=== PATIENT | male | born 1955 | race Caucasian/White ===

== ENCOUNTER 2024-06-06 18:32 | Inpatient (IN) | payer OTHER, SELFPAY ==
[2024-06-06 15:09] VITALS: BP 148/82
[2024-06-06 15:21] LABS: Glucose - Point of Care 265 mg/dl (70-99)
[2024-06-06 15:28] LABS: % Basophils 0.4 % (0-2); % Eosinophils 0.4 % (0-6); % Immature Granulocytes 0.4 % (0-0.5); % Lymphocytes 7.1 % (20.5-51.1); % Monocytes 8.9 % (1.7-9.3); % Neutrophils 82.8 % (42.2-75.2); Absolute Basophils 0.1 10^3/uL (0-0.2); Absolute Eosinophils 0.1 10^3/uL (0-0.7); Absolute Immature Granulocytes 0.1 10^3/uL (0-0.05); Absolute Lymphocytes 1.1 10^3/uL (1.2-3.4); Absolute Monocytes 1.4 10^3/uL (0.1-0.6); Absolute Neutrophils 12.9 10^3/uL (1.4-6.5); Hematocrit 31.6 % (39.0-52.0); Hemoglobin 11.3 g/dL (13.0-18.0); Mean Corp Hgb Conc. 35.8 g/dL (33.0-37.0); Mean Corpuscular Hgb 31.9 pg (27.0-31.0); Mean Corpuscular Volume 89.3 fL (80.0-94.0); Mean Platelet Volume 9.6 fL (7.4-10.4); Nucleated Red Blood Cells % 0 % (-); Platelet Count 171 10^3/uL (130-400); Red Blood Cell Count 3.54 10^6/uL (4.70-6.10); Red Cell Dist. Width 12.2 % (11.5-14.5); White Blood Cell Count 15.6 10^3/uL (4.8-10.8)
[2024-06-06 15:40] LABS: Lactic Acid 1.1 mmol/L (0.7-2.0)
[2024-06-06 15:49] LABS: ALT (SGPT) 20 U/L (0-50); AST (SGOT) 30 U/L (17-59); Albumin 4.8 g/dl (3.5-5.0); Alkaline Phosphatase 78 U/L (38-126); Blood Urea Nitrogen 47 mg/dl (9-20); Calcium 9.7 mg/dl (8.4-10.2); Carbon Dioxide 21 mmol/L (22-30); Chloride 103 mmol/L (98-107); Glucose 254 mg/dl (70-99); Potassium 5.3 mmol/L (3.5-5.1); Sodium 137 mmol/L (135-145); Total Bilirubin 0.6 mg/dl (0.2-1.3); Total Protein 7.2 g/dl (6.3-8.2); eGFR 31.63
--- NOTE | 2024-06-06 16:02 | ED.GENMED ---
History of Present Illness
General
Chief Complaint: Abdominal Symptoms
Source: patient
Time Seen by Provider: 06/06/24 15:34
History of Present Illness
History of Present Illness:
68yoM with a history of hypertension, hyperlipidemia, and type 2 diabetes presenting for evaluation of abdominal pain. Patient initially started with nausea and vomiting 2 days ago. Symptoms began after he ate leftover spaghetti. He has not had
any vomiting since yesterday morning but continues to feel nauseous. He reports generalized abdominal discomfort as well as back pain. He also feels very fatigued. He was seen at [facility] prior to arrival and was found to have a leukocytosis
with a white count of 13 as well as a creatinine of 2.3 and a potassium of 5.1. He was advised to go to the ED for evaluation. Patient denies any history of kidney disease in the past. He states he is urinating normally. He denies any diarrhea.
Phy Exam
Physical Exam
Physical Exam:
Appears fatigued, non-toxic
General Physical Exam
General Presentation: no apparent distress
General age: appears stated age
General Skin: warm and dry
General Habitus: normal
General Mental: alert
Cardiovascular Exam
Cardiovascular Exam: regular rate/rhythm, no edema and no murmur
Pulmonary Exam
Pulmonary Exam: lungs clear, no respiratory distress, no crackles and no wheezing
Gastrointestinal Exam
Gastrointestinal Exam: soft, non distended and tender (Mild generalized tenderness. No rebound or guarding. )
Palpation: generalized: Mild tenderness
Elpidio Coma Scale
Eye Opening: Spontaneous
Verbal Response: Oriented
Motor Response: Obeys Commands
GCS Total Score: 15
Skin Exam
Skin Exam: normal color and warm/dry
Psychiatric Exam
Psychiatric Exam: normal mood/affect
Course
Orders/Labs/Results
Orders:
Orders
06/06/24 15:15
Electrocardiogram (*1) Urgent
Reason for Study: Abdominal Pain
EKG- Treatment ONCE
06/06/24 15:21
Complete Blood Count/With Diff Urgent
Comprehensive Metabolic Panel Urgent
Lactic Acid Urgent
Lipase Urgent
06/06/24 15:58
CT Abd/pel Without Iv Or Oral Urgent
Comment:
Reason For Exam: Generalized abd pain, MELISSA
Cardiac Monitoring- Treatment ONCE
0.9% Sodium Chloride 1000 ml [Nss] 1,000 ml IV BOLUS
06/06/24 16:06
COVID-19 Antigen Urgent
Source: Nasal Swab
06/06/24 17:24
0.9% Sodium Chloride 1000 ml [Nss] 1,000 ml IV BOLUS
06/06/24 17:27
Lactated Ringers [Lr] 1,000 ml IV BOLUS
06/06/24 17:48
Urinalysis Reflex To Culture Urgent
Date Specimen was Collected: 06/06/24
Time Specimen was Collected: 15:15
Urine Microscopic Reflex Cult Urgent
Abnormal Lab Results
06/06/24 06/06/24 06/06/24
15:19 15:21 17:48
WBC 15.6 H 10^3/uL
(4.8-10.8)
RBC 3.54 L 10^6/uL
(4.70-6.10)
Hgb 11.3 L g/dL
(13.0-18.0)
Hct 31.6 L %
(39.0-52.0)
MCH 31.9 H pg
(27.0-31.0)
Abs Immat Gran (auto) 0.1 H 10^3/uL
(0-0.05)
Absolute Neuts (auto) 12.9 H 10^3/uL
(1.4-6.5)
Absolute Lymphs (auto) 1.1 L 10^3/uL
(1.2-3.4)
Absolute Monos (auto) 1.4 H 10^3/uL
(0.1-0.6)
Neutrophils % 82.8 H %
(42.2-75.2)
Lymphocytes % 7.1 L %
(20.5-51.1)
Potassium 5.3 H mmol/L
(3.5-5.1)
Carbon Dioxide 21 L mmol/L
(22-30)
BUN 47 H mg/dl
(9-20)
Creatinine 2.2 H mg/dL
(0.7-1.3)
Glucose 254 H mg/dl
(70-99)
Lipase > 4000 H* U/L
(23-300)
Urine Albumin (Reflex) 1+ A
(Neg - Trace)
POC Glucose 265 H mg/dl
(70-99)
06/06/24 15:21
06/06/24 15:21
Vital Signs
Initial and Last Documented VS:
Initial Vital Signs
Temp Pulse Resp BP Pulse Ox
100.2 F 86 16 148/82 98
06/06/24 15:09 06/06/24 15:09 06/06/24 15:09 06/06/24 15:09 06/06/24 15:09
Last Documented Vital Signs
Temp Pulse Resp BP Pulse Ox
99.1 F 88 17 148/82 98
06/06/24 17:05 06/06/24 17:49 06/06/24 17:49 06/06/24 15:09 06/06/24 17:30
MDM/Problems Addressed
Differential Diagnosis Includes:
68yoM here with abd pain and vomiting x 2 days. Went to urgent care and found to have an elevated creatinine and white count. Temperature 100.2 on arrival. Remainder of vital signs unremarkable. He appears fatigued but is nontoxic. No signs of
peritonitis on abdominal exam. Differential diagnosis includes but is not limited to: Gastroenteritis, dehydration, pancreatitis, cholecystitis, diverticulitis, MELISSA, kidney stone
Initial ED plan: Check abdominal labs, UA, EKG, COVID swab, and CT abdomen. IV fluid bolus.
*EKG
Interpreted by ED Provider?: Yes
EKG Intrepretation Date: 06/06/24
Heart Rate: 78
Rate: normal
Rhythm: sinus
Leslie: normal axis
Interval: normal interval
QRS Pattern: normal QRS
Ischemia: no ischemia
*Critical Care Note
Total Time (30-74mins, 75-104mins- exclusive of procedures): Not Applicable
Update Note
Update Note:
Labs reveal a creatinine of 2.2. Unclear baseline as no prior labs available for comparison. Potassium 5.3. No EKG changes present. White count elevated at 15.6. Lactate is normal. Lipase significantly elevated greater than 4000. CT shows a 6
mm calculus at the head of the pancreas with mild stranding in the peripancreatic fat suggesting pancreatitis. Additional fluid bolus given and he was admitted for further management.
ED Attending Note
-
Portions of this chart may have been created with voice recognition software.� Occasional wrong word or��sound alike� substitutions may have occurred due to the inherent limitations of voice recognition software.
Discharge Plan
Departure
Patient Disposition: Admit
Date of Disposition: 06/06/24
Time of Disposition: 17:45
Presentation/result/management discussed w/ accepting MD/DO: Hospitalist
Discharge Problem:
Acute pancreatitis, Acute kidney injury
Referrals:
Alyssa Antoine, ROBINSON [Family Provider] -
Interventions
Interventions:
*Risk Screen - Suicide Last Done: 06/06/24 17:04
*General Assessment Last Done: 06/06/24 17:04
*Neglect/Abuse Screening Last Done: 06/06/24 17:04
ED- Fall Risk Assessment Last Done: 06/06/24 16:33
*ED COVID-19 Vaccine History Last Done: 06/06/24 17:04
ZA-Manadg-Mmipynmawh Assessment Last Done: 06/06/24 16:33
Discharge Date and Time
Print Language: TAJIK
[2024-06-06] MEDS: NSS 1000 IV (16:07)
[2024-06-06 16:29] LABS: COVID-19 Antigen Negative (Negative)
[2024-06-06 16:39] LABS: Lipase > 4000 U/L (23-300)
[2024-06-06 17:03] VITALS: BMI 28.1
[2024-06-06] MEDS: LR 1000 IV ×2 (17:43→19:55)
[2024-06-06 17:59] LABS: Urine Albumin 1+ (Neg - Trace); Urine Bilirubin Negative (Negative); Urine Character Clear (Clear); Urine Color Yellow; Urine Glucose Negative (Negative); Urine Ketone Negative (Negative); Urine Leukocyte Negative (Negative); Urine Nitrite Negative (Negative); Urine Occult Blood Negative (Negative); Urine Urobilinogen Negative (Neg - 1+); Urine pH 6.5 (5.0-9.0)
[2024-06-06 18:00] VITALS: BP 146/68
--- NOTE | 2024-06-06 18:08 | HPS.HSE ---
Family Physician
-
Family Physician: ROBINSON Mascorro
Chief Complaint
-
Abdominal pain nausea and vomiting
History of Present Illness
This is a 68-year-old male with past medical history of hypertension, diabetes and hyperlipidemia who presents to the emergency department with sudden onset of abdominal pain that started 2 days ago.
Patient reports that was in usual state of health 2 days ago started having uncontrollable nausea and vomiting. After several nonbloody nonbilious emesis he developed severe epigastric abdominal pain that then generalized throughout his abdomen and
back and even lower extremities. The pain persisted overnight and then he went to urgent care. Patient denies having any fevers or chills. Denies any urinary symptoms. Labs and urgent care showed a leukocytosis and MELISSA and he was sent to the
emergency department.
In the ED the patient was normotensive at 148/82, had a low-grade temp of 99.1, oxygen saturation was 90% on room air. He had leukocytosis to 15,000 with unremarkable hemoglobin platelet count. Chemistries notable for a BUN of 47 and a creatinine
of 2.2 with a potassium of 5.3 but otherwise unremarkable. LFTs were within normal limits. Lipase was elevated at 4000. A CT scan of the abdomen pelvis showed 6 mm calculi in the head of the pancreas near the ampulla with stranding surrounding
the pancreas.
Medical History
Past Medical History
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
Past Surgical History: Reports None
Social History
Tobacco: Non-smoker
Alcohol: None
Drug: None
Personal:
Living: Alone
Employment: Employed
Family History
Family History: Cancer and Diabetes
Allergies / Home Medications
Allergies reflects when Allergies were last updated in [facility].
Home Medications with original date entered in [facility]
Allergy/Medication List:
Basaglar SQ 50 units HS
Rosuvastatin 10 mg po HS
Carvedilol 25mg po bid
Lisinopril 20mg po daily
Vascepa 1 g bid
Review of Systems
-
History Source: Patient
Constitutional: Reports No Symptoms
EENT: Reports No Symptoms
Respiratory: Reports No Symptoms
Cardiac: Reports No Symptoms
Abdomen/GI: Reports Abdominal Pain, Nausea and Vomiting
: Reports No Symptoms
Musculoskeletal: Reports No Symptoms
Skin: Reports No Symptoms
Neurological: Reports No Symptoms
Endocrine: Reports No Symptoms
Hematologic/Lymphatic: Reports No Symptoms
Psych: Reports No Symptoms
Physical Exam
Vital Signs
Vital Signs
Temp Pulse Resp BP Pulse Ox
99.1 F 88 17 148/82 98
06/06/24 17:05 06/06/24 17:49 06/06/24 17:49 06/06/24 15:09 06/06/24 17:30
Physical Exam
General: Well Developed, Well Nourished and Appears in Distress
HEENT: NormoCephalic, Anicteric, Moist mucous membranes and Atraumatic
Respiratory: Clear
Cardiac: S1/S2 and Regular Rhythm
Breast: Deferred by me
GI: Soft, Non Distended, Normal Bowel Sounds and Tender
Rectal: Deferred by Provider
Genito-urinary: Deferred by me
Musculoskeletal: No Clubbing, No Cyanosis and No Edema
Skin: Warm
Neuro: AO x 3
Hematologic/Lymphatic: No Lymphadenopathy
Psych: Calm
Laboratory Results
-
06/06/24 15:21
06/06/24 15:21
Laboratory Results
Lactic Acid 1.1 mmol/L (0.7-2.0) 06/06/24 15:21
Total Bilirubin 0.6 mg/dl (0.2-1.3) 06/06/24 15:21
AST 30 U/L (17-59) 06/06/24 15:21
ALT 20 U/L (0-50) 06/06/24 15:21
Alkaline Phosphatase 78 U/L (38-126) 06/06/24 15:21
Lipase > 4000 U/L (23-300) H* 06/06/24 15:21
Data Reviewed
-
CT Scan: Image Personally Visualized and interpreted
Medical Tests (Nuc Med, Echo, EKG etc): Image Personally Visualized and interpreted
Lab Data: Labs Reviewed by me
Impression/Plan
-
IMPRESSION:
PLAN:
1. Acute pancreatitis - Patient with acute gall stone pancreatitis. Hemodynamically stable. Afebrile. Has leukocytosis. No elevation in bilirubin or LFTs. No evidence of cholangitis at this time. Pancreatitis complicated by possible MELISSA.
- admit to gen med
- npo except sips
- pain control and antiemetics
- s/p 30 ml/kg crystalloid in ED, continue IV fluids with LR at 150 ml/hr after initial resuscitation in ED
- trend LFTs, MRCP, GI consult
2. DM II - mild hyperglycemia
- holding long acting insulin
- sliding scale insulin q 6 hours for now
- iv fluids as above
3. HTN - hemodynamically stable
- will continue carvedilol for now
- hold lisinopril
4. Renal insufficiency - Cr 2.3. Unknown baseline. Patient not aware of CKD status.
- possible MELISSA in setting of acute panc 2/2 pre-renal vs ATN. U/A unremarkable. No hydro on CT scan.
- monitor i/os for now
- avoid nephrotoxins
- hold lisinopril
- IV fluids as above
- obtain prior records in am
DVT PPX - heparin sq
Code Status - Full Code
[2024-06-06 18:15] LABS: Urine Red Blood Cell None Seen /HPF (0-2); Urine Squamous Cell 0-2 /LPF (Few); Urine White Cell None Seen /HPF (0-5)
[2024-06-06 19:00] VITALS: BP 130/58
--- NOTE | 2024-06-06 19:00 | CON.GI ---
Consultation
-
Date/Time Consultation Requested: 06/06/24 6:35pm
Date/Time Consultation Performed: 06/06/24 7:01pm
Requesting Provider: Minnie Fox
Performing Provider: Kike Dalal
Reason for Consultation: Gallstone pancreatitis
Medical History
Chief Complaint / HPI
Chief Complaint: Gallstone pancreatitis
History of Present Illness:
Patient is a 68-year-old male who presents with 1 day of generalized abdominal pain. Labs are notable for lipase of 4000. LFTs are normal. CAT scan shows acute pancreatitis. There is a 6 mm calculus near the ampulla in the head of the pancreas.
There are gallstones in the gallbladder. There is no biliary dilation noted. He does not drink alcohol at all. He has never had any problems with gallstones that he knows of in the past.
Past Medical History
Past Medical History: HTN and IDDM
Past Surgical History: None
Social History
Tobacco: Non-Smoker
Alcohol: None
Family History
Family History: Reviewed & Not Pertinent
Allergies / Home Medications
Allergy/AdvReac Type Severity Reaction Status Date / Time
Sulfa (Sulfonamide Allergy Unknown Verified 06/06/24 15:13
Antibiotics)
Review of Systems
-
All other systems: A 12 pt ROS was Negative except as stated above in HPI
Vital Signs
Temp Pulse Resp BP Pulse Ox
99.1 F 79 15 146/68 98
06/06/24 17:05 06/06/24 18:45 06/06/24 18:45 06/06/24 18:00 06/06/24 18:45
Physical Exam
Exam
General: Well Developed and Well Nourished
HEENT: Normocephalic and Atraumatic
Respiratory: Non Labored Respirations
GI: Soft, Non Tender and Non Distended
Skin: Warm and Dry
Results
WBC 15.6 10^3/uL (4.8-10.8) H 06/06/24 15:21
Hgb 11.3 g/dL (13.0-18.0) L 06/06/24 15:21
Hct 31.6 % (39.0-52.0) L 06/06/24 15:21
MCV 89.3 fL (80.0-94.0) 06/06/24 15:21
Plt Count 171 10^3/uL (130-400) 06/06/24 15:21
Absolute Neuts (auto) 12.9 10^3/uL (1.4-6.5) H 06/06/24 15:21
Sodium 137 mmol/L (135-145) 06/06/24 15:21
Potassium 5.3 mmol/L (3.5-5.1) H 06/06/24 15:21
Chloride 103 mmol/L (98-107) 06/06/24 15:21
Carbon Dioxide 21 mmol/L (22-30) L 06/06/24 15:21
BUN 47 mg/dl (9-20) H 06/06/24 15:21
Creatinine 2.2 mg/dL (0.7-1.3) H 06/06/24 15:21
Calcium 9.7 mg/dl (8.4-10.2) 06/06/24 15:21
Total Bilirubin 0.6 mg/dl (0.2-1.3) 06/06/24 15:21
AST 30 U/L (17-59) 06/06/24 15:21
ALT 20 U/L (0-50) 06/06/24 15:21
Alkaline Phosphatase 78 U/L (38-126) 06/06/24 15:21
Lipase > 4000 U/L (23-300) H* 06/06/24 15:21
Diagnostic Image Results:
Prior GI Procedures:
EGD:
Colonoscopy:
Assessment / Plan
-
Summary: 68yo male presents with 1 day of generalized abd pain. Lipase 4000. LFTs normal. CT shows gallstones, peripancreatic edema c/w pancreatitis, and 6mm calculus in head of pancreas near ampulla. Denies EtOH
Impression:
Gallstone pancreatitis
6mm calculus in head of pancreas near ampulla
Recommendations:
NPO
Aggressive hydration with LR
Trend lipase, follow LFTs
Review CT with radiology/Dr Akhtar and decide if MRCP would help decide if calculus is located in distal CBD requiring ERCP
If ERCP not necessary, pt should get eventual cholecystectomy
Will follow
-
-
Thank you for consultation and allowing me to participate in the patient's care. Please call the pet resort concierge GI physician during the after hours with any questions or concerns.
[2024-06-06 19:26] VITALS: BP 158/73; BMI 27.5
[2024-06-06 19:37] LABS: Glucose - Point of Care 186 mg/dl (70-99)
--- NOTE | 2024-06-06 19:44 | PTCARENOTE ---
Patient admitted from ED. Patient AAO x3, on RA, in no acute distress. Patient oriented to room and call virgen within reach.
[2024-06-06] MEDS: COREG 25 MG PO (19:55)
[2024-06-06] MEDS: NOVOLOG FLEXPEN-LOW RESISTANCE 1 UNITS SC (19:55)
[2024-06-06 23:31] VITALS: BP 129/63
[2024-06-07] MEDS: HEPARIN 5000 UNITS SC ×3 (00:04→16:01)
[2024-06-07 01:16] LABS: Glucose - Point of Care 161 mg/dl (70-99)
[2024-06-07] MEDS: NOVOLOG FLEXPEN-LOW RESISTANCE 1 UNITS SC ×4 (01:21→19:43)
[2024-06-07] MEDS: LR 1000 IV ×3 (04:56→19:44)
[2024-06-07 05:56] LABS: Glucose - Point of Care 163 mg/dl (70-99)
[2024-06-07 07:17] VITALS: BP 132/70
[2024-06-07 08:05] LABS: Hematocrit 28.5 % (39.0-52.0); Hemoglobin 9.9 g/dL (13.0-18.0); Mean Corp Hgb Conc. 34.7 g/dL (33.0-37.0); Mean Corpuscular Hgb 31.3 pg (27.0-31.0); Mean Corpuscular Volume 90.2 fL (80.0-94.0); Mean Platelet Volume 10.5 fL (7.4-10.4); Platelet Count 123 10^3/uL (130-400); Red Blood Cell Count 3.16 10^6/uL (4.70-6.10); Red Cell Dist. Width 12.2 % (11.5-14.5); White Blood Cell Count 12.2 10^3/uL (4.8-10.8)
[2024-06-07] MEDS: COREG 25 MG PO ×2 (08:15→19:42)
[2024-06-07 08:28] LABS: Blood Urea Nitrogen 39 mg/dl (9-20); Carbon Dioxide 22 mmol/L (22-30); Chloride 107 mmol/L (98-107); Estimated Creatinine Clearance 40 ml/min; Glucose 149 mg/dl (70-99); Magnesium 1.7 mg/dl (1.6-2.3); Potassium 5.1 mmol/L (3.5-5.1); Sodium 139 mmol/L (135-145); eGFR 37.71
--- NOTE | 2024-06-07 10:11 | W.PN.GI.CBS2 ---
Addendum entered and electronically signed by Kike Dalal MD 06/07/24 15:16:
I saw and examined the patient.
The ICT SUPPORT ENGINEER or PA's note was reviewed and I agree with the note.
Comment: Feeling much better. Abd pain improved
ABD soft minimal tender
REC:
Reviewed with radiology. Unclear if calcification at ampulla is within in CBD or PD
Will order MRI/MRCP
Lipase 4000
Cont NPO, IVF
Original Note:
Today's Communication / Plan
-
Await pending labs
Review CT Dr. Akhtar
Incentive spirometer
Trend labs
Assessment / Plan
-
Summary: 68yo male presents with 1 day of generalized abd pain. Lipase 4000. LFTs normal. CT shows gallstones, peripancreatic edema c/w pancreatitis, and 6mm calculus in head of pancreas near ampulla. Denies EtOH
Impression:
Gallstone pancreatitis
6mm calculus in head of pancreas near ampulla
Anemia
Mild thrombocytopenia
Recommendations:
NPO
Continue IVF
Check iron studies, B12, folate, LFTs and Lipase today
Incentive spirometer
CBC, BMP, LFTs in am
Review CT with radiology/Dr Akhtar and decide if MRCP would help decide if calculus is located in distal CBD requiring ERCP
If ERCP not necessary, pt should get eventual cholecystectomy
Will follow
Subjective
Subjective
Date of Service: June 07, 2024
Patient with epigastric discomfort still however somewhat decreased. Currently a '2-4' where yesterday it was a '4-6'. Denies any bilirubinuria. No BM. WBC improving, Hgb decreased (9.9 from 11.3), PLT 123 from 171. Patient did have 3L IVF bolus
followed by 150 cc/hr since then.
Objective
Data Reviewed
Laboratory Data:
Laboratory Results
06/07/24 06:57
06/07/24 06:56
Laboratory Results
Magnesium 1.7 mg/dl (1.6-2.3) 06/07/24 06:56
Total Bilirubin 0.6 mg/dl (0.2-1.3) 06/06/24 15:21
AST 30 U/L (17-59) 06/06/24 15:21
ALT 20 U/L (0-50) 06/06/24 15:21
Alkaline Phosphatase 78 U/L (38-126) 06/06/24 15:21
Lipase > 4000 U/L (23-300) H* 06/06/24 15:21
Vital Signs and I&O:
Vital Signs
Temp Pulse Resp BP Pulse Ox
98.2 F 71 12 132/70 97
06/07/24 07:17 06/07/24 07:17 06/07/24 07:17 06/07/24 07:17 06/07/24 07:17
I&O
06/06/24 06/07/24 06/08/24
06:59 06:59 06:59
Intake Total 1300 / 1300
Balance 1300 / 1300
Physical Exam
Physical Exam
HEENT: Anicteric
Cardiology: Normal Sinus Rhythm
Pulmonary: Clear (anterior)
GI: Soft, Non Distended, Tender (periumbilical/epigastric) and Normal Bowel Sounds
Neuro: Non Focal
--- NOTE | 2024-06-07 10:44 | W.PN.HOSP.TC ---
Today's Communication/Plan
-
see A/P
Assessment / Plan
Assessment / Plan
HPI: 68-year-old male with past medical history of hypertension, diabetes and hyperlipidemia who presented to the emergency department with sudden onset of abdominal pain that started 2 days [employer]RAIN[employer], associated with uncontrollable nausea and
vomiting. After several nonbloody nonbilious emesis, he developed severe epigastric abdominal pain, which progressed to generalized abdominal and back pain.
Labs and urgent care showed leukocytosis and MELISSA and he was sent to the emergency department.
In the ED, the patient was normotensive at 148/82, had a low-grade temp of 99.1, oxygen saturation was 90% on room air. He had leukocytosis to 15,000 with unremarkable hemoglobin platelet count. Creatinine of 2.2 with a potassium of 5.3 but
otherwise unremarkable. LFTs were within normal limits. Lipase was elevated at 4000.
A CT scan of the abdomen pelvis showed 6 mm calculi in the head of the pancreas near the ampulla with stranding surrounding the pancreas.
A/P:
# Acute gallstone pancreatitis
No evidence of cholangitis at this time.
NPO except sips, pain control and antiemetics
s/p IVF bolus, then continue IV fluids with LR at 120 ml/hr
trend lipase, LFTs
GI consult
# MELISSA vs CKD stage 3
# possible MELISSA in setting of acute panc 2/2 pre-renal vs ATN.
SCr 2.2 on admission, today at 1.9 , unknown SCr baseline
U/A unremarkable. No hydro on CT scan.
avoid nephrotoxins, hold lisinopril
cont IVF as above
# DM II
Hyperglycemia has improved
Sliding scale insulin q 6 hours for now
IVF as above
# HTN
hemodynamically stable
continue carvedilol ,
hold lisinopril with elevated SCr
DVT PPX - heparin sq
Code Status - Full Code
Anticipated Discharge: 24 - 48 hours
Subjective/Interval History
-
Date of Service: June 07, 2024
Objective Data
-
Labs:
Laboratory Results
06/07/24 06/07/24 06/07/24
06:56 06:57 10:16
WBC 12.2 H
Hgb 9.9 L
Hct 28.5 L
Plt Count 123 L D
Sodium 139
Potassium 5.1
Chloride 107
Carbon Dioxide 22
BUN 39 H
Creatinine 1.9 H
Glucose 149 H
Calcium 9.0
Total Bilirubin Pending Cancelled
AST Pending Cancelled
ALT Pending Cancelled
Alkaline Phosphatase Pending Cancelled
Vital Signs:
Vital Signs
Temp Pulse Resp BP Pulse Ox
36.8 C 71 12 132/70 97
06/07/24 07:17 06/07/24 07:17 06/07/24 07:17 06/07/24 07:17 06/07/24 07:17
I&O
06/06/24 06/07/24 06/08/24
06:59 06:59 06:59
Intake Total 1300 / 1300
Balance 1300 / 1300
Review of Systems
-
Abdomen/GI: Reports Abdominal Pain (epigastrium)
Physical Exam
-
General: Well Developed, Well Nourished, No Apparent Distress, Comfortable and Conversant; Negative Respiratory Distress
HEENT: Normocephalic, Atraumatic, Nose Appears Normal and Ears Appear Normal; Negative Oxygen
Respiratory: Clear to Auscultation and Non Labored Respirations; Negative Accessory Resp Muscle Use
Cardiac: Regular Rhythm and S1/S2
GI: Soft, Nondistended, Normal Bowel Sounds and Tender (epigastrium)
Skin: Warm and Dry
Neuro: Awake and Alert
Psych: Calm and Intact Judgement/Insight
Data Reviewed
-
CT Scan: Report Reviewed by me
Labs: Labs Reviewed by me
[2024-06-07 10:59] LABS: ALT (SGPT) 16 U/L (0-50); AST (SGOT) 27 U/L (17-59); Albumin 3.9 g/dl (3.5-5.0); Alkaline Phosphatase 69 U/L (38-126); Direct Bilirubin 0.2 mg/dl (0.0-0.4); Total Bilirubin 0.5 mg/dl (0.2-1.3); Total Protein 6.3 g/dl (6.3-8.2)
[2024-06-07 12:05] LABS: Glucose - Point of Care 177 mg/dl (70-99)
[2024-06-07 12:16] VITALS: BP 128/74; PULSE 73; O2SAT 98
[2024-06-07 12:24] LABS: Iron 35 ug/dl (49-181)
[2024-06-07 12:33] LABS: Percent Saturation 15 % (20-50); Total Iron Binding Capacity 225 ug/dl (261-462)
[2024-06-07 13:11] LABS: Lipase > 4000 U/L (23-300)
[2024-06-07 13:38] LABS: Folate 10.5 ng/ml (2.76-20); Vitamin B12 471 pg/ml (239-931)
[2024-06-07 15:25] VITALS: BP 137/72
[2024-06-07] MEDS: CRESTOR 10 MG PO (17:33)
[2024-06-07 19:38] LABS: Glucose - Point of Care 151 mg/dl (70-99)
[2024-06-07 23:14] VITALS: BP 131/70
[2024-06-08] LABS: Glucose - Point of Care 158 mg/dl (70-99)
[2024-06-08] MEDS: HEPARIN 5000 UNITS SC ×3 (00:33→19:17)
[2024-06-08] MEDS: NOVOLOG FLEXPEN-LOW RESISTANCE 1 UNITS SC ×3 (00:33→19:20)
[2024-06-08] MEDS: LR 1000 IV ×3 (03:05→21:23)
[2024-06-08 05:35] LABS: Glucose - Point of Care 127 mg/dl (70-99)
[2024-06-08] MEDS: NOVOLOG FLEXPEN-LOW RESISTANCE SC (05:37)
[2024-06-08 08:04] VITALS: BP 131/69
[2024-06-08 08:20] LABS: % Basophils 0.5 % (0-2); % Eosinophils 2.8 % (0-6); % Immature Granulocytes 0.2 % (0-0.5); % Monocytes 7.9 % (1.7-9.3); % Neutrophils 77.6 % (42.2-75.2); Absolute Eosinophils 0.2 10^3/uL (0-0.7); Absolute Lymphocytes 0.9 10^3/uL (1.2-3.4); Absolute Monocytes 0.7 10^3/uL (0.1-0.6); Absolute Neutrophils 6.5 10^3/uL (1.4-6.5); Hematocrit 27.2 % (39.0-52.0); Hemoglobin 9.4 g/dL (13.0-18.0); Mean Corp Hgb Conc. 34.6 g/dL (33.0-37.0); Mean Corpuscular Volume 89.8 fL (80.0-94.0); Mean Platelet Volume 10.3 fL (7.4-10.4); Nucleated Red Blood Cells % 0 % (-); Platelet Count 114 10^3/uL (130-400); Red Blood Cell Count 3.03 10^6/uL (4.70-6.10); Red Cell Dist. Width 12.2 % (11.5-14.5); White Blood Cell Count 8.4 10^3/uL (4.8-10.8)
[2024-06-08 08:46] LABS: ALT (SGPT) 17 U/L (0-50); AST (SGOT) 30 U/L (17-59); Albumin 3.8 g/dl (3.5-5.0); Alkaline Phosphatase 65 U/L (38-126); Blood Urea Nitrogen 38 mg/dl (9-20); Calcium 9.4 mg/dl (8.4-10.2); Carbon Dioxide 22 mmol/L (22-30); Chloride 109 mmol/L (98-107); Estimated Creatinine Clearance 40 ml/min; Glucose 135 mg/dl (70-99); Lipase 788 U/L (23-300); Potassium 5.2 mmol/L (3.5-5.1); Sodium 141 mmol/L (135-145); Total Bilirubin 0.4 mg/dl (0.2-1.3); eGFR 37.71
[2024-06-08] MEDS: COREG 25 MG PO ×2 (08:48→21:36)
--- NOTE | 2024-06-08 10:01 | W.PN.HOSP.TC ---
Today's Communication/Plan
-
see A/P
Assessment / Plan
Assessment / Plan
HPI: 68-year-old male with past medical history of hypertension, diabetes and hyperlipidemia who presented to the emergency department with sudden onset of abdominal pain that started 2 days [employer], associated with uncontrollable nausea and
vomiting. After several nonbloody nonbilious emesis, he developed severe epigastric abdominal pain, which progressed to generalized abdominal and back pain.
Labs and urgent care showed leukocytosis and MELISSA and he was sent to the emergency department.
In the ED, the patient was normotensive at 148/82, had a low-grade temp of 99.1, oxygen saturation was 90% on room air. He had leukocytosis to 15,000 with unremarkable hemoglobin platelet count. Creatinine of 2.2 with a potassium of 5.3 but
otherwise unremarkable. LFTs were within normal limits. Lipase was elevated at 4000.
A CT scan of the abdomen pelvis showed 6 mm calculi in the head of the pancreas near the ampulla with stranding surrounding the pancreas.
A/P:
# Acute gallstone pancreatitis
Check MRI MRCP
NPO except sips
pain control with IV Dilaudid, antiemetic PRN
lipase 4000 to 788
Cont RL
GI on board
# MELISSA vs CKD stage 3
# possible MELISSA in setting of acute panc 2/2 pre-renal vs ATN.
SCr 2.2 on admission, today at 1.9 , unknown SCr baseline
U/A unremarkable. No hydro on CT scan.
avoid nephrotoxins, hold lisinopril
Cont RL
# DM II
Hyperglycemia has improved
Sliding scale insulin q 6 hours for now
IVF as above
# HTN
hemodynamically stable
continue carvedilol ,
hold lisinopril with elevated SCr
DVT PPX - heparin sq
Code Status - Full Code
DW RN
DW sister on pt's phone (video)
Anticipated Discharge: 24 - 48 hours
Subjective/Interval History
-
Date of Service: June 08, 2024
Objective Data
-
Labs:
Laboratory Results
06/08/24
07:40
WBC 8.4
Hgb 9.4 L
Hct 27.2 L
Plt Count 114 L
Sodium 141
Potassium 5.2 H
Chloride 109 H
Carbon Dioxide 22
BUN 38 H
Creatinine 1.9 H
Glucose 135 H
Calcium 9.4
Total Bilirubin 0.4
AST 30
ALT 17
Alkaline Phosphatase 65
Vital Signs:
Vital Signs
Temp Pulse Resp BP Pulse Ox
36.6 C 67 18 131/69 97
06/08/24 08:04 06/08/24 08:04 06/08/24 08:04 06/08/24 08:48 06/08/24 08:04
I&O
06/07/24 06/08/24 06/09/24
06:59 06:59 06:59
Intake Total 1300 / 1300 2880 / 2880
Output Total 300 / 300
Balance 1300 / 1300 2580 / 2580
Review of Systems
-
Abdomen/GI: Denies Abdominal Pain (much resolved )
Physical Exam
-
General: Well Developed, Well Nourished, No Apparent Distress, Comfortable and Conversant; Negative Respiratory Distress
HEENT: Normocephalic, Atraumatic, Nose Appears Normal and Ears Appear Normal; Negative Oxygen
Respiratory: Clear to Auscultation and Non Labored Respirations; Negative Accessory Resp Muscle Use
Cardiac: Regular Rhythm and S1/S2
GI: Soft, Nontender, Nondistended and Normal Bowel Sounds
Skin: Warm and Dry
Neuro: Awake and Alert
Psych: Calm and Intact Judgement/Insight
Data Reviewed
-
CT Scan: Report Reviewed by me
Labs: Labs Reviewed by me
[2024-06-08 11:36] LABS: Glucose - Point of Care 163 mg/dl (70-99)
--- NOTE | 2024-06-08 14:42 | W.PN.GI.CBS2 ---
Addendum entered and electronically signed by rBennan St MD 06/08/24 17:51:
I saw and examined the patient.
The QUITLINE COUNSELOR's note was reviewed and I agree with the note.
Acute pancreatitis-feeling better today. Denies any abdominal pain/nausea/vomiting.
Plan
Follow-up MRI/MRCP -for further evaluation of 6 mm calculus in the head of the pancreas near the ampulla. Liver test normal
Check triglyceride/IgG4
After MRI okay to start on clear liquid advance to low-fat diet as tolerated
Follow-up with GI as outpatient for further evaluation of anemia
Original Note:
Today's Communication / Plan
-
As per plan
Assessment / Plan
-
Summary: 68yo male presents with 1 day of generalized abd pain. Lipase 4000. LFTs normal. CT shows gallstones, peripancreatic edema c/w pancreatitis, and 6mm calculus in head of pancreas near ampulla. Denies EtOH
Impression:
Gallstone pancreatitis
6mm calculus in head of pancreas near ampulla
Anemia-> mixed anemia with iron deficiency and appears anemia of chronic disease
Mild thrombocytopenia
Recommendations:
NPO
Continue IVF
Incentive spirometer
CBC, BMP, LFTs in am
MRI/MRCP ordered
If ERCP not necessary, pt should get eventual cholecystectomy
Will follow
Subjective
Subjective
Date of Service: June 08, 2024
Patient with a level '1' pain this morning. Mostly resolved. NPO. Awaiting MRI. Continues on IV fluids at 100 cc an hour. Lipase decreasing.
Objective
Data Reviewed
Laboratory Data:
Laboratory Results
06/08/24 07:40
06/08/24 07:40
Laboratory Results
Magnesium 1.7 mg/dl (1.6-2.3) 06/07/24 06:56
Total Bilirubin 0.4 mg/dl (0.2-1.3) 06/08/24 07:40
AST 30 U/L (17-59) 06/08/24 07:40
ALT 17 U/L (0-50) 06/08/24 07:40
Alkaline Phosphatase 65 U/L (38-126) 06/08/24 07:40
Lipase 788 U/L (23-300) H 06/08/24 07:40
Vital Signs and I&O:
Vital Signs
Temp Pulse Resp BP Pulse Ox
98 F 67 18 131/69 97
06/08/24 08:04 06/08/24 08:04 06/08/24 08:04 06/08/24 08:48 06/08/24 08:04
I&O
06/07/24 06/08/24 06/09/24
06:59 06:59 06:59
Intake Total 1300 / 1300 2880 / 2880
Output Total 300 / 300
Balance 1300 / 1300 2580 / 2580
Physical Exam
Physical Exam
HEENT: Anicteric
Cardiology: Normal Sinus Rhythm
Pulmonary: Clear
GI: Soft, Non Distended, Non Tender and Normal Bowel Sounds
Extremities: No Edema
Neuro: Non Focal
[2024-06-08 16:03] VITALS: BP 130/73
--- NOTE | 2024-06-08 16:40 | CM ---
CM met with Shai to complete IA. He lives alone in a 2 story house with 3 entry steps. Bedroom is on the second level; about 12 steps. 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 PT and OT evaluated and advised no therapy needed at this
time.
Shai will return home with no services at discharge. CM will follow in the event status changes.
PCP: Alyssa Antoine
Pharmacy: [facility] in [place]
[2024-06-08 17:55] LABS: Glucose - Point of Care 155 mg/dl (70-99)
[2024-06-08] MEDS: CRESTOR 10 MG PO (19:16)
[2024-06-08 21:09] LABS: Glucose - Point of Care 232 mg/dl (70-99)
[2024-06-08 23:41] VITALS: BP 113/70
[2024-06-09] MEDS: HEPARIN 5000 UNITS SC ×3 (00:18→17:30)
[2024-06-09 00:32] LABS: Glucose - Point of Care 138 mg/dl (70-99)
[2024-06-09] MEDS: NOVOLOG FLEXPEN-LOW RESISTANCE SC ×2 (00:33→06:17)
[2024-06-09 06:17] LABS: Glucose - Point of Care 147 mg/dl (70-99)
[2024-06-09] MEDS: LR 1000 IV (07:39)
[2024-06-09 08:01] LABS: ALT (SGPT) 20 U/L (0-50); AST (SGOT) 33 U/L (17-59); Albumin 3.6 g/dl (3.5-5.0); Alkaline Phosphatase 63 U/L (38-126); Blood Urea Nitrogen 37 mg/dl (9-20); Carbon Dioxide 21 mmol/L (22-30); Chloride 109 mmol/L (98-107); Estimated Creatinine Clearance 43 ml/min; Glucose 145 mg/dl (70-99); Lipase 578 U/L (23-300); Potassium 4.8 mmol/L (3.5-5.1); Sodium 139 mmol/L (135-145); Total Bilirubin 0.4 mg/dl (0.2-1.3); Total Protein 5.8 g/dl (6.3-8.2); Triglycerides 185 mg/dl (10-149); eGFR 40.24
[2024-06-09 08:02] LABS: % Basophils 0.6 % (0-2); % Eosinophils 3.9 % (0-6); % Immature Granulocytes 0.5 % (0-0.5); % Lymphocytes 14.2 % (20.5-51.1); % Monocytes 7.2 % (1.7-9.3); % Neutrophils 73.6 % (42.2-75.2); Absolute Eosinophils 0.3 10^3/uL (0-0.7); Absolute Lymphocytes 0.9 10^3/uL (1.2-3.4); Absolute Monocytes 0.5 10^3/uL (0.1-0.6); Absolute Neutrophils 4.9 10^3/uL (1.4-6.5); Hematocrit 25.4 % (39.0-52.0); Hemoglobin 8.9 g/dL (13.0-18.0); Mean Corpuscular Hgb 30.8 pg (27.0-31.0); Mean Corpuscular Volume 87.9 fL (80.0-94.0); Mean Platelet Volume 9.8 fL (7.4-10.4); Nucleated Red Blood Cells % 0 % (-); Platelet Count 129 10^3/uL (130-400); Red Blood Cell Count 2.89 10^6/uL (4.70-6.10); Red Cell Dist. Width 11.9 % (11.5-14.5); White Blood Cell Count 6.6 10^3/uL (4.8-10.8)
[2024-06-09 08:19] VITALS: BP 131/71
[2024-06-09] MEDS: COREG 25 MG PO ×2 (09:24→21:51)
--- NOTE | 2024-06-09 10:06 | W.PN.HOSP.TC ---
Today's Communication/Plan
-
see A/P
Assessment / Plan
Assessment / Plan
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
vomiting. After several nonbloody nonbilious emesis, he developed severe epigastric abdominal pain, which progressed to generalized abdominal and back pain.
Labs and urgent care showed leukocytosis and MELISSA and he was sent to the emergency department.
In the ED, the patient was normotensive at 148/82, had a low-grade temp of 99.1, oxygen saturation was 90% on room air. He had leukocytosis to 15,000 with unremarkable hemoglobin platelet count. Creatinine of 2.2 with a potassium of 5.3 but
otherwise unremarkable. LFTs were within normal limits. Lipase was elevated at 4000.
A CT scan of the abdomen pelvis showed 6 mm calculi in the head of the pancreas near the ampulla with stranding surrounding the pancreas.
A/P:
# Acute gallstone pancreatitis
Check MRI MRCP
pain control with IV Dilaudid (has not needed), antiemetic PRN
lipase 4000 to 500 today
IgG4 per GI
TG acceptable at 185
DC further IVF RL
GI on board
# MELISSA vs CKD stage 3
# possible MELISSA in setting of acute panc 2/2 pre-renal vs ATN.
SCr 2.2 on admission, today at 1.8 , unknown SCr baseline
U/A unremarkable. No hydro on CT scan.
avoid nephrotoxins, hold lisinopril
DC further IVF RL
# DM II
Hyperglycemia has improved
Sliding scale insulin q 6 hours for now
IVF as above
# HTN
hemodynamically stable
continue carvedilol ,
hold lisinopril with elevated SCr
DVT PPX - heparin sq
Code Status - Full Code
Anticipated Discharge: 24 - 48 hours
Subjective/Interval History
-
Date of Service: June 09, 2024
Objective Data
-
Labs:
Laboratory Results
06/09/24
07:23
WBC 6.6
Hgb 8.9 L
Hct 25.4 L
Plt Count 129 L
Sodium 139
Potassium 4.8
Chloride 109 H
Carbon Dioxide 21 L
BUN 37 H
Creatinine 1.8 H
Glucose 145 H
Calcium 9.0
Total Bilirubin 0.4
AST 33
ALT 20
Alkaline Phosphatase 63
Vital Signs:
Vital Signs
Temp Pulse Resp BP Pulse Ox
36.7 C 68 18 131/71 96
06/09/24 08:19 06/09/24 09:24 06/09/24 08:19 06/09/24 09:24 06/09/24 08:19
I&O
06/08/24 06/09/24 06/10/24
06:59 06:59 06:59
Intake Total 2880 / 2880 0 / 0
Output Total 300 / 300
Balance 2580 / 2580 0 / 0
Review of Systems
-
Abdomen/GI: Denies Abdominal Pain (much resolved )
Physical Exam
-
General: Well Developed, Well Nourished, No Apparent Distress, Comfortable and Conversant; Negative Respiratory Distress
HEENT: Normocephalic, Atraumatic, Nose Appears Normal and Ears Appear Normal; Negative Oxygen
Respiratory: Clear to Auscultation and Non Labored Respirations; Negative Accessory Resp Muscle Use
Cardiac: Regular Rhythm and S1/S2
GI: Soft, Nontender, Nondistended and Normal Bowel Sounds
Skin: Warm and Dry
Neuro: Awake and Alert
Psych: Calm and Intact Judgement/Insight
Data Reviewed
-
CT Scan: Report Reviewed by me
Labs: Labs Reviewed by me
[2024-06-09 12:21] LABS: Glucose - Point of Care 187 mg/dl (70-99)
[2024-06-09] MEDS: NOVOLOG FLEXPEN-LOW RESISTANCE 1 UNITS SC (12:38)
--- NOTE | 2024-06-09 14:56 | W.PN.GI.CBS2 ---
Addendum entered and electronically signed by Brennan St MD 06/09/24 17:02:
I saw and examined the patient.
The AUTOMOTIVE FINANCE MANAGER's note was reviewed and I agree with the note.
Acute pancreatitis -clinically doing well. Denies any abdominal pain/nausea/vomiting. MRI results discussed. IgG4 pending
plan
Advance to low-fat diet.
Advised to follow-up with GI as outpatient for further anemia workup (as per patient last colonoscopy 10 years back-reassured at that time. No prior EGD)
Will sign off. Please call us back if any questions
Original Note:
Today's Communication / Plan
-
As per plan
Assessment / Plan
-
Summary: 68yo male presents with 1 day of generalized abd pain. Lipase 4000. LFTs normal. CT shows gallstones, peripancreatic edema c/w pancreatitis, and 6mm calculus in head of pancreas near ampulla. Denies EtOH. MRI without CBD stone or
pancreatic head stone.
MRI of the abdomen/MRCP 06/09/2024:
IMPRESSION: Cholelithiasis. No findings to suggest acute cholecystitis. No evidence of biliary ductal dilation. No evidence of bile duct calculus.
Mild edema adjacent to the pancreas compatible with pancreatitis. No evidence for macroscopic pancreatic necrosis. No evidence of focal collection to suggest abscess or developing pseudocyst.
3 mm cyst within the posterior aspect of the proximal pancreatic tail. Given the small size in this 68-year-old patient, no further imaging follow-up is felt to be needed.
Electronically signed by Rory Spencer MD, 06/09/2024 12:56 PM
Impression:
Gallstone pancreatitis
6mm calculus in head of pancreas near ampulla-> not seen on MRI/MRCP
Anemia-> mixed anemia with iron deficiency and appears anemia of chronic disease
Mild thrombocytopenia
Recommendations:
-Low-fat diet
-Recommend eventual cholecystectomy
-Follow-up with GI as an outpatient for further evaluation of anemia
-IgG4 pending
Subjective
Subjective
Date of Service: June 09, 2024
Patient without any further pain. Has not required pain medications today. Tolerating clear liquid diet without any difficulty. LFTs within normal limits. Lipase 578, continues to trend down. MRI with cholelithiasis. No findings to suggest
acute cholecystitis. No evidence of biliary ductal dilatation. No evidence of bile duct calculus. Mild edema adjacent to pancreas compatible with pancreatitis. No evidence of macroscopic pancreatic necrosis. No evidence of focal collection to
suggest abscess or developing pseudocyst. 3 mm cyst within the posterior aspect of the proximal pancreatic tail. Given small size no further image follow-up felt to be needed, per radiology.
Objective
Data Reviewed
Laboratory Data:
Laboratory Results
06/09/24 07:23
06/09/24 07:23
Laboratory Results
Magnesium 1.7 mg/dl (1.6-2.3) 06/07/24 06:56
Total Bilirubin 0.4 mg/dl (0.2-1.3) 06/09/24 07:23
AST 33 U/L (17-59) 06/09/24 07:23
ALT 20 U/L (0-50) 06/09/24 07:23
Alkaline Phosphatase 63 U/L (38-126) 06/09/24 07:23
Lipase 578 U/L (23-300) H 06/09/24 07:23
Vital Signs and I&O:
Vital Signs
Temp Pulse Resp BP Pulse Ox
98.1 F 68 18 131/71 96
06/09/24 08:19 06/09/24 09:24 06/09/24 08:19 06/09/24 09:24 06/09/24 08:19
I&O
06/08/24 06/09/24 06/10/24
06:59 06:59 06:59
Intake Total 2880 / 2880 0 / 0
Output Total 300 / 300
Balance 2580 / 2580 0 / 0
Physical Exam
Physical Exam
HEENT: Anicteric
Cardiology: Normal Sinus Rhythm
Pulmonary: Clear
GI: Soft, Non Distended, Non Tender and Normal Bowel Sounds
Extremities: No Edema
Neuro: Non Focal
[2024-06-09 15:28] VITALS: BP 139/71
[2024-06-09 15:57] LABS: Glucose - Point of Care 277 mg/dl (70-99)
[2024-06-09] MEDS: CRESTOR 10 MG PO (17:30)
[2024-06-09] MEDS: NOVOLOG FLEXPEN-LOW RESISTANCE 3 UNITS SC (17:31)
[2024-06-09 21:28] LABS: Glucose - Point of Care 146 mg/dl (70-99)
[2024-06-09 23:30] VITALS: BP 120/57
[2024-06-10] MEDS: HEPARIN 5000 UNITS SC ×2 (00:09→09:11)
[2024-06-10 07:12] VITALS: BP 147/75
[2024-06-10 07:14] VITALS: BP 147/75
[2024-06-10 07:31] LABS: Glucose - Point of Care 184 mg/dl (70-99)
[2024-06-10 08:33] VITALS: BP 147/75
[2024-06-10 08:35] LABS: % Basophils 1.1 % (0-2); % Eosinophils 3.8 % (0-6); % Immature Granulocytes 0.5 % (0-0.5); % Lymphocytes 17.1 % (20.5-51.1); % Monocytes 8.8 % (1.7-9.3); % Neutrophils 68.7 % (42.2-75.2); Absolute Basophils 0.1 10^3/uL (0-0.2); Absolute Eosinophils 0.2 10^3/uL (0-0.7); Absolute Monocytes 0.5 10^3/uL (0.1-0.6); Absolute Neutrophils 3.9 10^3/uL (1.4-6.5); Hematocrit 26.9 % (39.0-52.0); Hemoglobin 9.6 g/dL (13.0-18.0); Mean Corp Hgb Conc. 35.7 g/dL (33.0-37.0); Mean Corpuscular Hgb 31.1 pg (27.0-31.0); Mean Corpuscular Volume 87.1 fL (80.0-94.0); Mean Platelet Volume 9.6 fL (7.4-10.4); Nucleated Red Blood Cells % 0 % (-); Platelet Count 135 10^3/uL (130-400); Red Blood Cell Count 3.09 10^6/uL (4.70-6.10); White Blood Cell Count 5.6 10^3/uL (4.8-10.8)
[2024-06-10] MEDS: NOVOLOG FLEXPEN-LOW RESISTANCE 300 UNITS SC (09:10)
[2024-06-10] MEDS: COREG 25 MG PO (09:11)
[2024-06-10 09:50] LABS: ALT (SGPT) 28 U/L (0-50); AST (SGOT) 41 U/L (17-59); Albumin 4.2 g/dl (3.5-5.0); Blood Urea Nitrogen 37 mg/dl (9-20); Carbon Dioxide 14 mmol/L (22-30); Estimated Creatinine Clearance 43 ml/min; Glucose 187 mg/dl (70-99); Lipase 591 U/L (23-300); Total Bilirubin 0.4 mg/dl (0.2-1.3); Total Protein 6.6 g/dl (6.3-8.2); eGFR 40.24
--- NOTE | 2024-06-10 09:53 | W.PN.HOSP.TC ---
Addendum entered and electronically signed by Emily Desai MD 06/10/24 12:05:
total DC time 37 min
Original Note:
Today's Communication/Plan
-
DC home today
Assessment / Plan
Assessment / Plan
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
vomiting. After several nonbloody nonbilious emesis, he developed severe epigastric abdominal pain, which progressed to generalized abdominal and back pain.
Labs and urgent care showed leukocytosis and MELISSA and he was sent to the emergency department.
In the ED, the patient was normotensive at 148/82, had a low-grade temp of 99.1, oxygen saturation was 90% on room air. He had leukocytosis to 15,000 with unremarkable hemoglobin platelet count. Creatinine of 2.2 with a potassium of 5.3 but
otherwise unremarkable. LFTs were within normal limits. Lipase was elevated at [address].
A CT scan of the abdomen pelvis showed 6 mm calculi in the head of the pancreas near the ampulla with stranding surrounding the pancreas.
A/P:
# Acute gallstone pancreatitis
MRI/MRCP noted Mild edema adjacent to the pancreas compatible with pancreatitis. Cholelithiasis but no findings to suggest acute cholecystitis, and no biliary ductal dilation, no bile duct calculus.
Pt denies to abd pain (has not needed any pain meds)
lipase 4000 to 500 today
IgG4 ordered per GI , pending result
TG acceptable at 185
Off further IVF RL
GI on board
# MELISSA on CKD stage 3
SCr 2.2 on admission, today at 1.8 which is likely at baseline
U/A unremarkable. No hydro on CT scan.
avoid nephrotoxins, hold lisinopril
DC further IVF RL
# DM II
Hyperglycemia has improved
Sliding scale insulin q 6 hours for now
IVF as above
# HTN
hemodynamically stable
continue carvedilol ,
hold lisinopril with elevated SCr
DVT PPX - heparin sq
Code Status - Full Code
Anticipated Discharge: Today
Subjective/Interval History
-
Date of Service: June 10, 2024
Objective Data
-
Labs:
Laboratory Results
06/10/24
08:12
WBC 5.6
Hgb 9.6 L
Hct 26.9 L
Plt Count 135
Sodium Pending
Potassium Pending
Chloride Pending
Carbon Dioxide 14 L*
BUN 37 H
Creatinine 1.8 H
Glucose 187 H
Calcium Pending
Total Bilirubin 0.4
AST 41
ALT 28
Alkaline Phosphatase Pending
Vital Signs:
Vital Signs
Temp Pulse Resp BP Pulse Ox
36.8 C 71 12 147/75 96
06/10/24 07:14 06/10/24 07:14 06/10/24 07:14 06/10/24 09:11 06/10/24 07:14
I&O
06/09/24 06/10/24 06/11/24
06:59 06:59 06:59
Intake Total 0 / 0 0 / 1740
Balance 0 / 0 174 / 1740
Review of Systems
-
Abdomen/GI: Denies Abdominal Pain (much resolved )
Physical Exam
-
General: Well Developed, Well Nourished, No Apparent Distress, Comfortable and Conversant; Negative Respiratory Distress
HEENT: Normocephalic, Atraumatic, Nose Appears Normal and Ears Appear Normal; Negative Oxygen
Respiratory: Clear to Auscultation and Non Labored Respirations; Negative Accessory Resp Muscle Use
Cardiac: Regular Rhythm and S1/S2
GI: Soft, Nontender, Nondistended and Normal Bowel Sounds
Skin: Warm and Dry
Neuro: Awake and Alert
Psych: Calm and Intact Judgement/Insight
Data Reviewed
-
CT Scan: Report Reviewed by me
Labs: Labs Reviewed by me
[2024-06-10 10:08] LABS: Alkaline Phosphatase 77 U/L (38-126); Calcium 9.4 mg/dl (8.4-10.2); Chloride 109 mmol/L (98-107); Potassium 4.7 mmol/L (3.5-5.1); Sodium 138 mmol/L (135-145)
--- NOTE | 2024-06-10 11:53 | W.DCSUMMARY ---
Addendum entered and electronically signed by Emily Desai MD 06/25/24 12:39:
# CKD 3b, MELISSA is ruled out
Original Note:
Discharge Summary
Discharge Data
Date of Admission: 06/06/24
Date of Discharge: 06/10/24
-
Pending Results: No
Hospital Course
Principal Diagnosis:
Acute gallstone pancreatitis
Acute kidney injury (MELISSA) on chronic kidney disease (CKD) stage 3
Chronic Diagnoses:�
Box-[id number] diabetes
Essential hypertension, prior to admission lisinopril held due to elevated serum creatinine. Continue with prior to admission Coreg.
Hyperlipidemia
Consultations:�
Gastroenterology
Procedures:�
None
Clinical course:�
This is a 68-year-old male with past medical history as stated above, who presented with epigastric abdominal pain which has subsequently resolved.
Problem 1:
Acute gallstone pancreatitis.
This was treated with Ringer's lactate which was discontinued subsequently.
His MRI/MRCP noted mild edema adjacent to the pancreas compatible with pancreatitis. Cholelithiasis but no findings to suggest acute cholecystitis, and no biliary ductal dilation, no bile duct calculus.
His lipase level trended down from 4000 on admission to 500.
IgG4 was ordered per GI, result was still pending at the time of discharge.
His TG was acceptable at 185.
He was able to tolerate low-fat diet prior to discharge. He has been informed to continue with low-fat diet for about 1 week following discharge.
Problem 2:
MELISSA on CKD stage 3.
His serum creatinine down trended from 2.2 on admission to 1.8 which is likely his baseline.
Of note, his UA was unremarkable, and CT showed no hydronephrosis.
His prior to admission lisinopril was discontinued.
As for the rest of his medical problems, they were stable during his hospital stay.
Discharge Plan
-
Patient Disposition: Home (Routine Discharge)
Discharge Diagnosis/Procedures: Gallstone pancreatitis
Condition: Good
Diet: As tolerated, Low Fat and Low Cholesterol
Activity: As tolerated
Driving Restrictions: As prior to admission
Blood Work: BMP in 1 week with your PCP
Referrals:
Alyssa Antoine CRNP [Family Provider] - in less than 1 week
Prescriptions:
New
carvedilol 25 mg Tablet
25 mg PO BID Qty: 60 0RF
rosuvastatin 10 mg Tablet
10 mg PO QPM Qty: 30 0RF
Discharge Orders:
Discharge Patient (As Directed); Ordered 06/10/24
Ordered By: Emily Desai
Discharge Date and Time
Discharge Date/Time: 06/10/24 10:56
Print Language: SLOVAK
[2024-06-10 23:57] LABS: IgG Subclass 4 23 mg/dL (1-123)
--- NOTE | 2024-06-14 13:11 | PN.CDI ---
CDI
- -
CDI:
Physician Documentation Request
Admit Date: 06/06/24 18:32
Dear Doctor Giselle,
Please review the following and provide your response in the progress notes.
Clinical Indicators:
The diagnosis of ATN was documented on 06/09 PN, but is not in subsequent documentation.
- 06/09 PN 'MELISSA vs CKD stage 3'
- 'possible MELISSA in setting of acute panc 2/2 pre-renal vs ATN'
- 06/10 PN 'SCr 2.2 on admission, today at 1.8 which is likely at baseline'
Laboratory Tests
06/06/24 06/07/24 06/08/24
15:21 06:56 07:40
Creatinine 2.2 H 1.9 H 1.9 H
06/09/24 06/10/24
07:23 08:12
Creatinine 1.8 H 1.8 H
Please clarify the following:
____ - ATN was present on admission and is now resolved.
____ - ATN was ruled out
____ - Other
Use of terms such as suspected, likely, concern for, or probable (associated with a specific diagnosis that is being evaluated, monitored, or treated as if it exists) are acceptable and can be coded in the inpatient setting, when documented at the
time of discharge.
Thank you,
Eugenio Albrecht RN
CDI Specialist
Please use your independent medical judgment in providing your response.
--- NOTE | 2024-06-14 13:18 | PN.CDI ---
CDI
- -
CDI:
Physician Documentation Request
Admit Date: 06/06/24 18:32
Dear Doctor Giselle,
Please review the following and provide your response in the progress notes.
Clinical Indicators:
Documentation in the record on Progress Notes includes the diagnosis of MELISSA and CKD.
- 06/10 DC Summary 'Acute kidney injury (MELISSA) on chronic kidney disease (CKD) stage 3'
- 'serum creatinine down trended from 2.2 on admission to 1.8 which is likely his baseline'
Laboratory Tests
06/06/24 06/07/24 06/08/24
15:21 06:56 07:40
Creatinine 2.2 H 1.9 H 1.9 H
eGFR 31.63 37.71 37.71
06/09/24 06/10/24
07:23 08:12
Creatinine 1.8 H 1.8 H
eGFR 40.24 40.24
Please clarify in the Progress Notes which of the following most accurately represents the patient's renal status:
CKD 3b, MELISSA is ruled out
Other
Criteria for MELISSA*
1 Increase in serum creatinine by > or = to 0.3 mg/dL (> or = to 26.5 micromol/L) within 48 hours, OR
2 Increase in serum creatinine to > or = to 1.5 times baseline, which is known or presumed to have occurred within 7 days, OR
3 Urine volume < 0.5 nL/kg/hour for six hours
Stages of Chronic Kidney Disease*
Level Description GFR
G1 Normal or High >90
G2 Mildly decreased 60-89
G3a Mildly to moderately decreased 45-59
G3b Moderately to severely decreased 30-44
G4 Severely decreased 15-29
G5 Kidney failure <15
Use of terms such as suspected, likely, concern for, or probable (associated with a specific diagnosis that is being evaluated, monitored, or treated as if it exists) are acceptable and can be coded in the inpatient setting, when documented at the
time of discharge.
Thank you,
Eugenio Albrecht RN
CDI Specialist
Please use your independent medical judgment in providing your response.
*Source: Kidney Disease: Improving Global Outcomes (KDIGO) 2012
== END 2024-06-10 10:56 | disposition home or self-care (01) | DRG 440 ==
LOC: 4 EAST ACU 18:32
PROVIDERS: Internal Medicine Gastroenterology; Physician Assistant; ADMITTING PHYSICIAN Internal Medicine; ATTENDING PHYSICIAN Internal Medicine; CONSULT PHYSICIAN Specialist; EMERGENCY PHYSICIAN Emergency Medicine; FAMILY PHYSICIAN Nurse Practitioner Family
DX: K85.10 Biliary acute pancreatitis without necrosis or infection (principal); D69.6 Thrombocytopenia, unspecified; D63.1 Anemia in chronic kidney disease; E11.22 Type 2 diabetes mellitus with diabetic chronic kidney disease; N18.32 Chronic kidney disease, stage 3b; E11.65 Type 2 diabetes mellitus with hyperglycemia; I12.9 Hypertensive chronic kidney disease with stage 1 through stage 4 chronic kidney disease, or unspecified chronic kidney disease; D50.9 Iron deficiency anemia, unspecified; K86.89 Other specified diseases of pancreas; K80.20 Calculus of gallbladder without cholecystitis without obstruction; E78.5 Hyperlipidemia, unspecified; Z79.899 Other long term (current) drug therapy; Z88.2 Allergy status to sulfonamides
CPT/HCPCS: 74176; 74183; 80053; 81003; 81015; 82248; 82607; 82728; 82746; 82787; 82962; 83540; 83550; 83605; 83690; 83735; 84478; 85025; 85027; 87811; 93005; 96360; 96361; 97161; 99285; A9575